=== PATIENT | male | born 1950 | race African-American/Black ===

== ENCOUNTER 2017-05-25 08:50 | Day surgery (SDC) | payer MEDICARE, OTHER ==
[~2017-05-25 08:50] MED LIST: ASPI-1169 PO; BENA5TAB2 PO; GABA800T2 PO; HYDR-548 PO; LEVO500T2 PO; METF-834 PO; TRAM50TA2 PO
[2017-05-25] MEDS ORDERED: BUPIVACAINE 0.25% 75 MG/30 ML VIAL ONE (10:02)
[2017-05-25] MEDS ORDERED: methylPREDNISolone ACETATE 80 MG/ML VIAL ONE (10:03)
[2017-05-25] MEDS ORDERED: LIDOCAINE 1% INJ 50 ML MDV IJ ONE (10:03)
== END 2017-05-25 10:39 | disposition home or self-care (01) ==
LOC: DS 08:50
PROVIDERS: ATTEND Anesthesiology
DX: M53.3 Sacrococcygeal disorders, not elsewhere classified (principal); M47.817 Spondylosis without myelopathy or radiculopathy, lumbosacral region; E11.40 Type 2 diabetes mellitus with diabetic neuropathy, unspecified; I10 Essential (primary) hypertension; Z85.46 Personal history of malignant neoplasm of prostate
CPT/HCPCS: 72170; G0260; J1040; J3490

== ENCOUNTER 2017-07-19 08:48 | Day surgery (SDC) | payer MEDICARE, OTHER ==
[~2017-07-19 08:48] MED LIST changes: -BENA5TAB2 PO; +BENA5TAB5 PO
--- NOTE | 2017-07-19 09:57 | NUR ---
MS RN: DAY SURGERY NOTE PT ON FLOOR TO DO DAY SURGERY WITH MD FERREIRA. CONSENT SIGNED FOR BILATERAL SACROLIC JOINT INJECTION WITH LOCAL. PER MD TO NOT ADMIN PT. VS STABLE BP 109/56, PULSE 78, RR 18, O2 100% ON ROOM AIR, TEMP 97.9. NO DISTRESS. NO SOB NOTED. SKIN INTACT. PAIN IN LOWER BACK. ALL BELONGINGS WITH PT. RESTING COMFORTABLY IN BED.
[2017-07-19] MEDS ORDERED: MIDAZOLAM HCL 2 MG/2ML VIAL ONE ×2 (10:00→10:23)
[2017-07-19] MEDS ORDERED: FENTANYL PF 100MCG/2ML AMPUL ONE ×2 (10:01→10:22)
[2017-07-19 10:02] VITALS: BP 109/56
[2017-07-19] MEDS ORDERED: IOHEXOL 50 ML IV ONE (10:27)
[2017-07-19] MEDS ORDERED: methylPREDNISolone ACETATE 80 MG/ML VIAL ONE (10:27)
[2017-07-19] MEDS ORDERED: LIDOCAINE 1% INJ 50 ML MDV IJ ONE (10:28)
[2017-07-19] MEDS ORDERED: BUPIVACAINE 0.25% 75 MG/30 ML VIAL ONE (10:29)
--- NOTE | 2017-07-19 11:44 | NUR ---
PT RETURNED FROM PROCEDURE. PER MD FERREIRA ORDERS TO BE D/C HOME. RESUME ALL HOME MEDS AND RESUME REGULAR DIET.
--- NOTE | 2017-07-19 11:54 | NUR ---
PT DISCHARGED BACK HOME PER MD SWARTZHANNA ORDER. PT RETURNED FROM PROCEDURE. PER MD HANNA ORDERS TO BE D/C HOME. RESUME ALL HOME MEDS AND RESUME REGULAR DIET. IV ARELY ONE L FA #20 REMOVED. SITE CLEAR. NO REDNESS OR BLEEDING NOTED. ALL BELONGINGS ACCOUNTED FOR. 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
== END 2017-07-19 11:30 | disposition home or self-care (01) ==
LOC: DS 08:48 → MED 08:50 → UNDOADMIN 08:50 → DS 11:30 → UNDODISIN 11:30
PROVIDERS: ATTEND Anesthesiology
DX: M53.3 Sacrococcygeal disorders, not elsewhere classified (principal); M47.817 Spondylosis without myelopathy or radiculopathy, lumbosacral region; E11.40 Type 2 diabetes mellitus with diabetic neuropathy, unspecified; I10 Essential (primary) hypertension; Z85.46 Personal history of malignant neoplasm of prostate
CPT/HCPCS: 72170; G0260; J1040; J2250 ×2; J3010 ×2; J3490 ×2; Q9967; Z7610 ×2

== ENCOUNTER 2017-07-21 09:44 | Outpatient (CLI) | payer MEDICARE, OTHER ==
[~2017-07-21 09:44] MED LIST changes: +BENA5TAB2 PO; -BENA5TAB5 PO
== END 2017-07-21 23:59 | disposition home or self-care (01) ==
LOC: MSC 09:44
PROVIDERS: ATTEND Anesthesiology
DX: G89.29 Other chronic pain (principal); M54.5 Low back pain; M47.817 Spondylosis without myelopathy or radiculopathy, lumbosacral region; M25.9 Joint disorder, unspecified; E11.40 Type 2 diabetes mellitus with diabetic neuropathy, unspecified; I10 Essential (primary) hypertension; Z85.46 Personal history of malignant neoplasm of prostate

== ENCOUNTER 2017-08-15 14:00 | Outpatient (CLI) | payer MEDICARE, OTHER ==
[~2017-08-15 14:00] MED LIST changes: -BENA5TAB2 PO; +BENA5TAB5 PO
== END 2017-08-15 23:59 | disposition home or self-care (01) ==
LOC: MSC 14:00
PROVIDERS: ATTEND Anesthesiology
DX: G89.29 Other chronic pain (principal); M54.5 Low back pain; M47.817 Spondylosis without myelopathy or radiculopathy, lumbosacral region; M25.9 Joint disorder, unspecified; E11.40 Type 2 diabetes mellitus with diabetic neuropathy, unspecified; I10 Essential (primary) hypertension

== ENCOUNTER 2017-09-12 11:56 | Outpatient (CLI) | payer MEDICARE, OTHER | END 2017-09-12 23:59 | disposition home or self-care (01) | LOC: MSC 11:56 | PROVIDERS: ATTEND Anesthesiology | DX: M47.817 Spondylosis without myelopathy or radiculopathy, lumbosacral region (principal); G89.29 Other chronic pain; M25.9 Joint disorder, unspecified; E11.40 Type 2 diabetes mellitus with diabetic neuropathy, unspecified; Z79.84 Long term (current) use of oral hypoglycemic drugs; Z79.899 Other long term (current) drug therapy; Z79.891 Long term (current) use of opiate analgesic ==

== ENCOUNTER 2017-10-10 13:30 | Outpatient (CLI) | payer MEDICARE, OTHER | END 2017-10-10 23:59 | disposition home or self-care (01) | LOC: MSC 13:30 | PROVIDERS: ATTEND Anesthesiology | DX: M47.817 Spondylosis without myelopathy or radiculopathy, lumbosacral region (principal); E11.40 Type 2 diabetes mellitus with diabetic neuropathy, unspecified; M25.9 Joint disorder, unspecified; M54.5 Low back pain; F11.20 Opioid dependence, uncomplicated; Z79.84 Long term (current) use of oral hypoglycemic drugs; Z79.899 Other long term (current) drug therapy ==

== ENCOUNTER 2017-11-07 13:30 | Outpatient (CLI) | payer MEDICARE, OTHER | END 2017-11-07 23:59 | disposition home or self-care (01) | LOC: MSC 13:30 | PROVIDERS: ATTEND Anesthesiology | DX: G89.29 Other chronic pain (principal); M47.817 Spondylosis without myelopathy or radiculopathy, lumbosacral region; M54.5 Low back pain; E11.40 Type 2 diabetes mellitus with diabetic neuropathy, unspecified; F11.20 Opioid dependence, uncomplicated; Z79.84 Long term (current) use of oral hypoglycemic drugs ==

== ENCOUNTER → 2018-01-16 | Outpatient (CLI) | payer MEDICARE, OTHER | END | disposition home or self-care (01) | LOC: MSC 13:00 | PROVIDERS: ATTEND Anesthesiology | DX: G89.29 Other chronic pain (principal); F11.20 Opioid dependence, uncomplicated; E11.40 Type 2 diabetes mellitus with diabetic neuropathy, unspecified; M47.817 Spondylosis without myelopathy or radiculopathy, lumbosacral region; M25.9 Joint disorder, unspecified; Z79.84 Long term (current) use of oral hypoglycemic drugs; Z79.899 Other long term (current) drug therapy ==

== ENCOUNTER → 2018-02-13 | Outpatient (CLI) | payer MEDICARE, OTHER ==
[~2018-02-13] MED LIST changes: +HYDR-4354 PO; -HYDR-548 PO
== END | disposition home or self-care (01) ==
LOC: MSC 13:00
PROVIDERS: ATTEND Anesthesiology
DX: M47.817 Spondylosis without myelopathy or radiculopathy, lumbosacral region (principal); E11.40 Type 2 diabetes mellitus with diabetic neuropathy, unspecified; Z79.84 Long term (current) use of oral hypoglycemic drugs; I10 Essential (primary) hypertension; M54.5 Low back pain; Z79.891 Long term (current) use of opiate analgesic; Z79.899 Other long term (current) drug therapy; Z85.46 Personal history of malignant neoplasm of prostate

== ENCOUNTER 2018-05-08 10:45 | Outpatient (CLI) | payer MEDICARE, OTHER ==
[~2018-05-08 10:45] MED LIST changes: +GABA800T11 PO; -GABA800T2 PO
== END 2018-05-08 23:59 | disposition home or self-care (01) ==
LOC: MSC 10:45
PROVIDERS: ATTEND Anesthesiology
DX: M47.817 Spondylosis without myelopathy or radiculopathy, lumbosacral region (principal); E11.40 Type 2 diabetes mellitus with diabetic neuropathy, unspecified; F11.20 Opioid dependence, uncomplicated; M25.511 Pain in right shoulder; M79.671 Pain in right foot; Z79.84 Long term (current) use of oral hypoglycemic drugs; Z79.899 Other long term (current) drug therapy
CPT/HCPCS: G0463; Z7610

== ENCOUNTER → 2018-06-19 | Outpatient (CLI) | payer MEDICARE, OTHER | END | disposition home or self-care (01) | LOC: MSC 13:30 | PROVIDERS: ATTEND Anesthesiology | DX: M47.817 Spondylosis without myelopathy or radiculopathy, lumbosacral region (principal); E11.40 Type 2 diabetes mellitus with diabetic neuropathy, unspecified; M51.36 Other intervertebral disc degeneration, lumbar region; G89.4 Chronic pain syndrome; M51.26 Other intervertebral disc displacement, lumbar region; M62.830 Muscle spasm of back; M25.9 Joint disorder, unspecified; F11.20 Opioid dependence, uncomplicated; M25.511 Pain in right shoulder; M79.671 Pain in right foot; Z79.899 Other long term (current) drug therapy ==

== ENCOUNTER 2018-07-17 11:00 | Outpatient (CLI) | payer MEDICARE, OTHER | END 2018-07-17 23:59 | disposition home or self-care (01) | LOC: MSC 11:00 | PROVIDERS: ATTEND Anesthesiology | DX: G89.4 Chronic pain syndrome (principal); M47.817 Spondylosis without myelopathy or radiculopathy, lumbosacral region; M51.36 Other intervertebral disc degeneration, lumbar region; M51.26 Other intervertebral disc displacement, lumbar region; M62.830 Muscle spasm of back; E11.40 Type 2 diabetes mellitus with diabetic neuropathy, unspecified; F11.20 Opioid dependence, uncomplicated; I10 Essential (primary) hypertension; Z85.46 Personal history of malignant neoplasm of prostate; Z79.899 Other long term (current) drug therapy; Z90.79 Acquired absence of other genital organ(s) ==

== ENCOUNTER 2018-08-07 13:22 | Outpatient (CLI) | payer MEDICARE, OTHER | END 2018-08-07 23:59 | disposition home or self-care (01) | LOC: MSC 13:22 | PROVIDERS: ATTEND Anesthesiology | DX: G89.4 Chronic pain syndrome (principal); M51.36 Other intervertebral disc degeneration, lumbar region; M51.26 Other intervertebral disc displacement, lumbar region; M47.817 Spondylosis without myelopathy or radiculopathy, lumbosacral region; M62.830 Muscle spasm of back; E11.40 Type 2 diabetes mellitus with diabetic neuropathy, unspecified; Z79.891 Long term (current) use of opiate analgesic; Z79.899 Other long term (current) drug therapy ==

== ENCOUNTER 2018-09-11 13:30 | Outpatient (CLI) | payer MEDICARE, OTHER | END 2018-09-11 23:59 | disposition home or self-care (01) | LOC: MSC 13:30 | PROVIDERS: ATTEND Anesthesiology | DX: M47.817 Spondylosis without myelopathy or radiculopathy, lumbosacral region (principal); M51.36 Other intervertebral disc degeneration, lumbar region; M51.26 Other intervertebral disc displacement, lumbar region; M62.830 Muscle spasm of back; M25.9 Joint disorder, unspecified; G89.4 Chronic pain syndrome; E11.40 Type 2 diabetes mellitus with diabetic neuropathy, unspecified; I10 Essential (primary) hypertension; Z85.46 Personal history of malignant neoplasm of prostate; F11.20 Opioid dependence, uncomplicated; Z79.899 Other long term (current) drug therapy ==

== ENCOUNTER 2018-10-16 10:00 | Outpatient (CLI) | payer MEDICARE, OTHER | END 2018-10-16 23:59 | disposition home or self-care (01) | LOC: MSC 10:00 | PROVIDERS: ATTEND Anesthesiology | DX: M47.817 Spondylosis without myelopathy or radiculopathy, lumbosacral region (principal); M51.36 Other intervertebral disc degeneration, lumbar region; M51.26 Other intervertebral disc displacement, lumbar region; M62.830 Muscle spasm of back; G89.4 Chronic pain syndrome; M25.9 Joint disorder, unspecified; E11.40 Type 2 diabetes mellitus with diabetic neuropathy, unspecified; I10 Essential (primary) hypertension; Z85.46 Personal history of malignant neoplasm of prostate; F11.20 Opioid dependence, uncomplicated ==

== ENCOUNTER 2018-11-20 09:30 | Outpatient (CLI) | payer MEDICARE, OTHER | END 2018-11-20 23:59 | disposition home or self-care (01) | LOC: MSC 09:30 | PROVIDERS: ATTEND Anesthesiology | DX: M51.36 Other intervertebral disc degeneration, lumbar region (principal); M51.26 Other intervertebral disc displacement, lumbar region; M47.817 Spondylosis without myelopathy or radiculopathy, lumbosacral region; M62.830 Muscle spasm of back; G89.4 Chronic pain syndrome; M25.9 Joint disorder, unspecified; E11.40 Type 2 diabetes mellitus with diabetic neuropathy, unspecified; Z79.84 Long term (current) use of oral hypoglycemic drugs; F11.20 Opioid dependence, uncomplicated; Z79.899 Other long term (current) drug therapy ==

== ENCOUNTER 2018-12-25 09:00 | Outpatient (CLI) | payer MEDICARE, OTHER | END 2018-12-25 23:59 | disposition home or self-care (01) | LOC: MSC 09:00 | PROVIDERS: ATTEND Anesthesiology | DX: M47.817 Spondylosis without myelopathy or radiculopathy, lumbosacral region (principal); M51.36 Other intervertebral disc degeneration, lumbar region; M51.26 Other intervertebral disc displacement, lumbar region; M62.830 Muscle spasm of back; G89.4 Chronic pain syndrome; M25.9 Joint disorder, unspecified; E11.40 Type 2 diabetes mellitus with diabetic neuropathy, unspecified; Z79.84 Long term (current) use of oral hypoglycemic drugs; F11.20 Opioid dependence, uncomplicated; I10 Essential (primary) hypertension; Z85.46 Personal history of malignant neoplasm of prostate ==

== ENCOUNTER 2019-01-22 12:30 | Outpatient (CLI) | payer MEDICARE, OTHER | END 2019-01-22 23:59 | disposition home or self-care (01) | LOC: MSC 12:30 | PROVIDERS: ATTEND Anesthesiology | DX: G89.4 Chronic pain syndrome (principal); M47.817 Spondylosis without myelopathy or radiculopathy, lumbosacral region; M51.36 Other intervertebral disc degeneration, lumbar region; M51.26 Other intervertebral disc displacement, lumbar region; M62.830 Muscle spasm of back; E11.40 Type 2 diabetes mellitus with diabetic neuropathy, unspecified; F11.20 Opioid dependence, uncomplicated; Z79.84 Long term (current) use of oral hypoglycemic drugs; Z79.899 Other long term (current) drug therapy ==

== ENCOUNTER → 2019-02-26 | Outpatient (CLI) | payer MEDICARE, OTHER | END | disposition home or self-care (01) | LOC: MSC 09:05 | PROVIDERS: ATTEND Anesthesiology | DX: M47.817 Spondylosis without myelopathy or radiculopathy, lumbosacral region (principal); M51.36 Other intervertebral disc degeneration, lumbar region; M51.26 Other intervertebral disc displacement, lumbar region; M62.830 Muscle spasm of back; M25.9 Joint disorder, unspecified; G89.4 Chronic pain syndrome; M79.2 Neuralgia and neuritis, unspecified; E11.40 Type 2 diabetes mellitus with diabetic neuropathy, unspecified; F11.20 Opioid dependence, uncomplicated ==

== ENCOUNTER → 2019-05-07 | Outpatient (CLI) | payer MEDICARE, OTHER | END | disposition home or self-care (01) | LOC: MSC 05-07 09:55 | PROVIDERS: ATTEND Anesthesiology | DX: M47.817 Spondylosis without myelopathy or radiculopathy, lumbosacral region (principal); M51.36 Other intervertebral disc degeneration, lumbar region; M51.26 Other intervertebral disc displacement, lumbar region; M62.830 Muscle spasm of back; M25.9 Joint disorder, unspecified; G89.4 Chronic pain syndrome; M79.672 Pain in left foot; M79.671 Pain in right foot; M79.2 Neuralgia and neuritis, unspecified; E11.40 Type 2 diabetes mellitus with diabetic neuropathy, unspecified; F11.20 Opioid dependence, uncomplicated ==

== ENCOUNTER 2019-06-11 10:20 | Outpatient (CLI) | payer MEDICARE, OTHER | END 2019-06-11 23:59 | disposition home or self-care (01) | LOC: MSC 10:20 | PROVIDERS: ATTEND Anesthesiology | DX: M47.817 Spondylosis without myelopathy or radiculopathy, lumbosacral region (principal); M51.36 Other intervertebral disc degeneration, lumbar region; M51.26 Other intervertebral disc displacement, lumbar region; M62.830 Muscle spasm of back; M25.9 Joint disorder, unspecified; G89.4 Chronic pain syndrome; M79.2 Neuralgia and neuritis, unspecified; E11.40 Type 2 diabetes mellitus with diabetic neuropathy, unspecified; I10 Essential (primary) hypertension; F11.20 Opioid dependence, uncomplicated; Z85.46 Personal history of malignant neoplasm of prostate ==

== ENCOUNTER → 2019-07-09 | Outpatient (CLI) | payer MEDICARE, OTHER | END | disposition home or self-care (01) | LOC: MSC 11:05 | PROVIDERS: ATTEND Anesthesiology | DX: M47.817 Spondylosis without myelopathy or radiculopathy, lumbosacral region (principal); M51.36 Other intervertebral disc degeneration, lumbar region; M51.26 Other intervertebral disc displacement, lumbar region; M62.830 Muscle spasm of back; M25.9 Joint disorder, unspecified; G89.4 Chronic pain syndrome; E11.40 Type 2 diabetes mellitus with diabetic neuropathy, unspecified; M79.2 Neuralgia and neuritis, unspecified; I10 Essential (primary) hypertension; F11.20 Opioid dependence, uncomplicated; Z85.46 Personal history of malignant neoplasm of prostate ==

== ENCOUNTER → 2019-08-13 | Outpatient (CLI) | payer MEDICARE, OTHER | END | disposition home or self-care (01) | LOC: MSC 10:25 | PROVIDERS: ATTEND Anesthesiology | DX: M47.817 Spondylosis without myelopathy or radiculopathy, lumbosacral region (principal); M51.36 Other intervertebral disc degeneration, lumbar region; M51.26 Other intervertebral disc displacement, lumbar region; M62.830 Muscle spasm of back; E11.40 Type 2 diabetes mellitus with diabetic neuropathy, unspecified; G89.4 Chronic pain syndrome; M25.9 Joint disorder, unspecified; M79.2 Neuralgia and neuritis, unspecified; F11.20 Opioid dependence, uncomplicated; I10 Essential (primary) hypertension; Z85.46 Personal history of malignant neoplasm of prostate ==

== ENCOUNTER 2019-09-10 10:10 | Outpatient (CLI) | payer MEDICARE, OTHER | END 2019-09-10 23:59 | disposition home or self-care (01) | LOC: MSC 10:10 | PROVIDERS: ATTEND Anesthesiology | DX: G89.4 Chronic pain syndrome (principal); M79.671 Pain in right foot; M47.817 Spondylosis without myelopathy or radiculopathy, lumbosacral region; M51.36 Other intervertebral disc degeneration, lumbar region; M51.26 Other intervertebral disc displacement, lumbar region; M62.830 Muscle spasm of back; M25.9 Joint disorder, unspecified; M79.2 Neuralgia and neuritis, unspecified; E11.40 Type 2 diabetes mellitus with diabetic neuropathy, unspecified; I10 Essential (primary) hypertension; Z85.46 Personal history of malignant neoplasm of prostate; Z90.79 Acquired absence of other genital organ(s); F11.20 Opioid dependence, uncomplicated ==

== ENCOUNTER → 2019-11-05 | Outpatient (CLI) | payer MEDICARE, OTHER | END | disposition home or self-care (01) | LOC: MSC 10:20 | PROVIDERS: ATTEND Anesthesiology | DX: M47.817 Spondylosis without myelopathy or radiculopathy, lumbosacral region (principal); M51.36 Other intervertebral disc degeneration, lumbar region; M51.26 Other intervertebral disc displacement, lumbar region; M62.830 Muscle spasm of back; G89.4 Chronic pain syndrome; M79.671 Pain in right foot; E11.40 Type 2 diabetes mellitus with diabetic neuropathy, unspecified; M25.9 Joint disorder, unspecified; M79.2 Neuralgia and neuritis, unspecified; I10 Essential (primary) hypertension; Z85.46 Personal history of malignant neoplasm of prostate; Z79.891 Long term (current) use of opiate analgesic ==

== ENCOUNTER → 2019-12-10 | Outpatient (CLI) | payer MEDICARE, OTHER | END | disposition home or self-care (01) | LOC: MSC 09:40 | PROVIDERS: ATTEND Anesthesiology | DX: M51.26 Other intervertebral disc displacement, lumbar region (principal); M51.36 Other intervertebral disc degeneration, lumbar region; M47.817 Spondylosis without myelopathy or radiculopathy, lumbosacral region; M62.830 Muscle spasm of back; R22.41 Localized swelling, mass and lump, right lower limb; E11.40 Type 2 diabetes mellitus with diabetic neuropathy, unspecified; G89.4 Chronic pain syndrome; M25.9 Joint disorder, unspecified; M79.2 Neuralgia and neuritis, unspecified; I10 Essential (primary) hypertension; F11.20 Opioid dependence, uncomplicated ==

== ENCOUNTER → 2020-01-14 | Outpatient (CLI) | payer MEDICARE, OTHER | END | disposition home or self-care (01) | LOC: MSC 10:00 | PROVIDERS: ATTEND Anesthesiology | DX: M51.36 Other intervertebral disc degeneration, lumbar region (principal); M51.26 Other intervertebral disc displacement, lumbar region; M47.817 Spondylosis without myelopathy or radiculopathy, lumbosacral region; M62.830 Muscle spasm of back; M79.2 Neuralgia and neuritis, unspecified; E11.40 Type 2 diabetes mellitus with diabetic neuropathy, unspecified; G89.4 Chronic pain syndrome; M25.9 Joint disorder, unspecified; F11.20 Opioid dependence, uncomplicated; I10 Essential (primary) hypertension; Z79.899 Other long term (current) drug therapy ==

== ENCOUNTER → 2020-02-18 | Outpatient (CLI) | payer MEDICARE, OTHER | END | disposition home or self-care (01) | LOC: MSC 10:00 | PROVIDERS: ATTEND Anesthesiology | DX: M47.817 Spondylosis without myelopathy or radiculopathy, lumbosacral region (principal); M51.36 Other intervertebral disc degeneration, lumbar region; M51.26 Other intervertebral disc displacement, lumbar region; M62.830 Muscle spasm of back; M79.2 Neuralgia and neuritis, unspecified; G89.4 Chronic pain syndrome; M25.9 Joint disorder, unspecified; E11.40 Type 2 diabetes mellitus with diabetic neuropathy, unspecified; F11.20 Opioid dependence, uncomplicated ==

== ENCOUNTER 2020-04-21 09:45 | Outpatient (CLI) | payer MEDICARE, OTHER ==
[~2020-04-21 09:45] MED LIST changes: -METF-834 PO; +METF-866 PO
== END 2020-04-21 23:59 | disposition home or self-care (01) ==
LOC: MSC 09:45
PROVIDERS: ATTEND Anesthesiology
DX: M47.817 Spondylosis without myelopathy or radiculopathy, lumbosacral region (principal); M51.36 Other intervertebral disc degeneration, lumbar region; M51.26 Other intervertebral disc displacement, lumbar region; M62.830 Muscle spasm of back; G89.4 Chronic pain syndrome; M79.2 Neuralgia and neuritis, unspecified; M25.9 Joint disorder, unspecified; E11.40 Type 2 diabetes mellitus with diabetic neuropathy, unspecified; F11.20 Opioid dependence, uncomplicated

== ENCOUNTER 2020-05-26 09:30 | Outpatient (CLI) | payer MEDICARE, OTHER | END 2020-05-26 23:59 | disposition home or self-care (01) | LOC: MSC 09:30 | PROVIDERS: ATTEND Anesthesiology | DX: M47.817 Spondylosis without myelopathy or radiculopathy, lumbosacral region (principal); M51.36 Other intervertebral disc degeneration, lumbar region; M51.26 Other intervertebral disc displacement, lumbar region; M62.830 Muscle spasm of back; M25.9 Joint disorder, unspecified; G89.4 Chronic pain syndrome; M79.2 Neuralgia and neuritis, unspecified; M76.32 Iliotibial band syndrome, left leg; M76.31 Iliotibial band syndrome, right leg; E11.40 Type 2 diabetes mellitus with diabetic neuropathy, unspecified; F11.20 Opioid dependence, uncomplicated ==

== ENCOUNTER 2020-06-23 09:48 | Outpatient (CLI) | payer MEDICARE, OTHER | END 2020-06-23 23:59 | disposition home or self-care (01) | LOC: MSC 09:48 | PROVIDERS: ATTEND Anesthesiology | DX: M47.817 Spondylosis without myelopathy or radiculopathy, lumbosacral region (principal); M51.36 Other intervertebral disc degeneration, lumbar region; M51.26 Other intervertebral disc displacement, lumbar region; M62.830 Muscle spasm of back; M76.32 Iliotibial band syndrome, left leg; M76.31 Iliotibial band syndrome, right leg; Z76.0 Encounter for issue of repeat prescription; G89.4 Chronic pain syndrome; M25.9 Joint disorder, unspecified; M79.2 Neuralgia and neuritis, unspecified; F11.20 Opioid dependence, uncomplicated ==

== ENCOUNTER 2020-07-21 11:30 | Outpatient (CLI) | payer MEDICARE, OTHER | END 2020-07-21 23:59 | disposition home or self-care (01) | LOC: MSC 11:30 | PROVIDERS: ATTEND Anesthesiology | DX: G89.4 Chronic pain syndrome (principal); M54.5 Low back pain; E11.40 Type 2 diabetes mellitus with diabetic neuropathy, unspecified; Z76.0 Encounter for issue of repeat prescription; F11.20 Opioid dependence, uncomplicated; M62.830 Muscle spasm of back; M76.32 Iliotibial band syndrome, left leg; M76.31 Iliotibial band syndrome, right leg; M51.17 Intervertebral disc disorders with radiculopathy, lumbosacral region; Z90.79 Acquired absence of other genital organ(s) ==

== ENCOUNTER 2020-09-29 10:00 | Outpatient (CLI) | payer MEDICARE, OTHER | END 2020-09-29 23:59 | disposition home or self-care (01) | LOC: MSC 10:00 | PROVIDERS: ATTEND Anesthesiology | DX: M47.817 Spondylosis without myelopathy or radiculopathy, lumbosacral region (principal); M51.36 Other intervertebral disc degeneration, lumbar region; M51.26 Other intervertebral disc displacement, lumbar region; M62.830 Muscle spasm of back; E11.40 Type 2 diabetes mellitus with diabetic neuropathy, unspecified; Z79.84 Long term (current) use of oral hypoglycemic drugs; G89.4 Chronic pain syndrome; M79.2 Neuralgia and neuritis, unspecified; M25.9 Joint disorder, unspecified; M76.32 Iliotibial band syndrome, left leg; M76.31 Iliotibial band syndrome, right leg; Z79.891 Long term (current) use of opiate analgesic ==

== ENCOUNTER 2020-11-03 09:55 | Outpatient (CLI) | payer MEDICARE, OTHER | END 2020-11-03 23:59 | disposition home or self-care (01) | LOC: MSC 09:55 | PROVIDERS: ATTEND Anesthesiology | DX: M47.817 Spondylosis without myelopathy or radiculopathy, lumbosacral region (principal); M51.36 Other intervertebral disc degeneration, lumbar region; M51.26 Other intervertebral disc displacement, lumbar region; M62.830 Muscle spasm of back; E11.40 Type 2 diabetes mellitus with diabetic neuropathy, unspecified; Z79.84 Long term (current) use of oral hypoglycemic drugs; G89.4 Chronic pain syndrome; M76.32 Iliotibial band syndrome, left leg; M76.31 Iliotibial band syndrome, right leg; M79.2 Neuralgia and neuritis, unspecified; M25.9 Joint disorder, unspecified; F11.20 Opioid dependence, uncomplicated ==